=== PATIENT | female | born 1965 | race Caucasian/White ===

== ENCOUNTER 2017-10-17 15:29 | Outpatient (CLI) | payer MEDICARE ==
--- NOTE | 2017-10-17 19:21 | ULT ---
PELVIC ULTRASOUND: 10/17/17 Transabdominal and endovaginal ultrasound of pelvis performed. HISTORY: Right ovarian cyst identified at outside institution. FINDINGS: The patient is post hysterectomy. Both ovaries are identified. The left ovary appears unremarkable. C olor doppler and spectral analysis demonstrates blood flow to the left ovary. In the right adnexa, there are two adjacent cysts. The largest measures up to 3.5 cm and a smaller cy st is seen measuring 1.5 cm. Right ovary is identified and color doppler with spectral analysis does show flow to the right ovary. IMPRESSION: There are two right ovarian cysts, the largest measuring up to 3.5 cm. POS: [facility]
== END 2017-10-17 15:30 | disposition home or self-care (01) ==
LOC: ULT 15:29
PROVIDERS: ATTEND Family Medicine
DX: N83.201 Unspecified ovarian cyst, right side (principal)
CPT/HCPCS: 76856; 82378; 86304

== ENCOUNTER 2018-10-03 10:18 | Outpatient (CLI) | payer MEDICARE ==
--- NOTE | 2018-10-03 13:52 | MRI ---
MRI RIGHT SHOULDER WITHOUT CONTRAST: HISTORY: Internal derangement, M24.811. COMPARISON: None. FINDINGS: Biceps tendon: The extraarticular biceps tendon is normal. Mild intraarticular tendinosis. Labrum: There is a focal anterior labral tear at 3 o'clock. There is moderate degenerative signal w ithin the superior labrum, without a displaced tear appreciated, but with free edge fraying. Rotator cuff: There is a focal full-thickness leading edge tear of the anterior 6 mm supraspinatus t endon from the foot print, retracted 4 mm. Moderate tendinosis of the remainder of supraspinatus and infraspinatus tendons. Mild tendinosis, subscapularis. Bones: Advanced degenerative disease, acromioclavicular joint, with subcortical cysts and osteophyte formation. 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 There is also bursal surface fraying of the supraspinatus tendon. Small subacromial/subdeltoid bursal effusion. Muscle bulk is normal. IMPRESSION: 1. Type III acromion, narrowing the subacromial space, causing bursal surface fraying of the suprasp inatus tendon. 2. A focal leading edge 6 mm edge full-thickness tear of the anterior fibers of the supraspinatus te ndon. 3. Focal chondrolabral tear of the anterior labrum at 3 o'clock, along with free edge fraying of the superior labrum. POS: [facility]
== END 2018-10-03 10:19 | disposition home or self-care (01) ==
LOC: BICMRI 10:18
PROVIDERS: ATTEND Family Medicine
DX: M24.811 Other specific joint derangements of right shoulder, not elsewhere classified (principal); S31.41XD Laceration without foreign body of vagina and vulva, subsequent encounter

== ENCOUNTER 2018-11-08 15:26 | Outpatient (CLI) | payer MEDICARE ==
--- NOTE | 2018-11-08 16:12 | RAD ---
CERVICAL SPINE FIVE VIEWS: Date: 11-08-18 History: Neck pain. FINDINGS: Cervical vertebral body height and alignment appears within normal limits. There is no anterolisthesis or retrolisthesis noted within the cervical spine. No prevertebral soft t issue swelling. Open mouth odontoid view and Fuchs view demonstrate a normal appearing C1-2 articulation and dens res pectively. IMPRESSION: No acute findings. POS: [facility]
== END 2018-11-08 15:27 | disposition home or self-care (01) ==
LOC: BICRAD 15:26
PROVIDERS: ATTEND Family Medicine
DX: M54.2 Cervicalgia (principal)
CPT/HCPCS: 72040

== ENCOUNTER 2020-04-28 12:23 | Outpatient (CLI) | payer MEDICARE ==
--- NOTE | 2020-04-28 14:33 | RAD ---
FOUR VIEWS OF THE LEFT ELBOW: COMPARISON: None. HISTORY: Elbow pain for a month. FINDINGS: Four views of the left elbow show no evidence of acute fracture or dislocation. No elbow effusion is seen. No degenerative changes are present. IMPRESSION: Unremarkable exam. POS: [facility]
== END 2020-04-28 12:24 | disposition home or self-care (01) ==
LOC: BICRAD 12:23
PROVIDERS: ATTEND Family Medicine
DX: M25.522 Pain in left elbow (principal)

== ENCOUNTER 2020-06-08 08:43 | Outpatient (CLI) | payer MEDICARE ==
--- NOTE | 2020-06-08 09:11 | BD ---
EXAM: Bone densitometry using DEXA HISTORY: 55 yo female. Screening for postmenopausal osteoporosis FINDINGS: L1--bone mineral density 0.942 g/sq cm; T score -0.4 ; Z score 0.6 L2--bone mineral density 1.010 g/sq cm; T score -0.2 ; Z score 1.0 L3--bone mineral density 1.018 g/sq cm; T score -0.6 ; Z score 0.6 L4--bone mineral density 0.991 g/sq cm; T score -0.6 ; Z score 0.6 Total L1-L4--bone mineral density 0.991 g/sq cm; T score -0.5 ; Z score 0.6 Left femoral neck--bone mineral density0.804; T score -0.4 ; Z score 0.7 Total proximal left femur--bone mineral density 1.091; T score 1.2 ; Z score 2.0 IMPRESSION: Normal BMD
== END 2020-06-08 08:44 | disposition home or self-care (01) ==
LOC: BICMAMMO 08:43
PROVIDERS: ATTEND Family Medicine
DX: Z13.820 Encounter for screening for osteoporosis (principal); N95.1 Menopausal and female climacteric states
CPT/HCPCS: 77080

== ENCOUNTER 2022-05-12 15:02 | Emergency (ER) | payer OTHER, MEDICARE ==
[2022-05-12 15:24] LABS: #Eosinphils 0.2 thou/uL (0.0-0.7); #Lymphocytes 2.7 thou/uL (1.20-3.40); #Monocytes 0.5 thou/uL (0.11-0.59); #Neutrophils 5.4 thou/uL (1.40-6.50); %Basophils 0.2 % (0.0-1.0); %Eosinophils 2.4 % (0.0-10.0); %Lymphocytes 30.9 % (21.0-51.0); %Monocytes 5.3 % (0.0-10.0); %Neutrophils 61.2 % (42.0-75.0); Hemoglobin 11.9 g/dL (12.0-16.0); Mean Corpuscular HGB CONC 33.5 g/dL (32.0-36.0); Mean Corpuscular Hemoglobin 32.1 pg (27.0-31.0); Mean Corpuscular Volume 95.9 fL (78.0-98.0); Mean Platelet Volume 7.6 fL (7.4-10.4); Platelet Count 377 thou/uL (130-400); RBC Distribution Width 11.4 % (11.5-14.5); Red Blood Cell (RBC) Count 3.69 mill/uL (4.20-5.40); White Blood Cell (WBC) Count 8.8 thou/uL (4.8-10.8)
[2022-05-12 15:35] LABS: INR-International Normal Ratio 0.9; Prothrombin Time 11.9 sec (12.0-14.7)
[2022-05-12 15:44] LABS: ALT (SGPT) 15 U/L (8-55); AST (SGOT) 20 U/L (5-34); Albumin 4.2 g/dL (3.5-5.0); Alkaline Phosphatase 70 U/L (40-110); Anion Gap 15 mmol/L (10-20); BUN (Urea Nitrogen) 19 mg/dL (9.8-20.1); Bilirubin, Total Less than 0.2 mg/dL (0.2-1.2); Calc. Creatinine Clearance 0 mL/min (70-130); Calcium 9.6 mg/dL (7.8-10.44); Carbon Dioxide 24 mmol/L (22-29); Chloride 106 mmol/L (98-107); Globulin 2.9 g/dL (2.4-3.5); Glucose 96 mg/dL (70-105); Potassium 4.4 mmol/L (3.5-5.1); Protein, Total 7.1 g/dL (6.0-8.3); Sodium 141 mmol/L (136-145)
== END 2022-05-12 16:40 | disposition home or self-care (01) ==
LOC: ERS 15:02
DX: S29.012A Strain of muscle and tendon of back wall of thorax, initial encounter (principal); N83.201 Unspecified ovarian cyst, right side; R20.2 Paresthesia of skin; V43.52XA Car driver injured in collision with other type car in traffic accident, initial encounter
CPT/HCPCS: 70450; 71045; 71260; 72125; 74177; 80053; 83605; 85025; 85610; 85730; 86850; 86900; 86901; 93005; G0390

== ENCOUNTER 2022-05-13 12:24 | Emergency (ER) | payer OTHER, MEDICARE ==
[2022-05-13] MEDS ORDERED: Ondansetron ODT 4 MG TAB ONE (14:01)
== END 2022-05-13 17:08 | disposition home or self-care (01) ==
LOC: ERS 12:24
DX: S06.0X0A Concussion without loss of consciousness, initial encounter (principal); S43.401A Unspecified sprain of right shoulder joint, initial encounter; E03.9 Hypothyroidism, unspecified; Z79.899 Other long term (current) drug therapy; V89.2XXA Person injured in unspecified motor-vehicle accident, traffic, initial encounter
CPT/HCPCS: 70450; 72125; Q0162

== ENCOUNTER 2023-02-03 12:53 | Outpatient (CLI) | payer MEDICARE | END 2023-02-03 12:54 | disposition home or self-care (01) | LOC: RAD 12:53 | PROVIDERS: ATTEND Internal Medicine Rheumatology | DX: M46.1 Sacroiliitis, not elsewhere classified (principal); M95.8 Other specified acquired deformities of musculoskeletal system; M53.3 Sacrococcygeal disorders, not elsewhere classified; M25.811 Other specified joint disorders, right shoulder | CPT/HCPCS: 72202 ==

== ENCOUNTER 2023-03-20 10:32 | Outpatient (CLI) | payer MEDICARE, OTHER | END 2023-03-20 10:33 | disposition home or self-care (01) | LOC: DTY/OP 10:32 | PROVIDERS: ATTEND Family Medicine | DX: E16.2 Hypoglycemia, unspecified (principal); Z98.84 Bariatric surgery status | CPT/HCPCS: 97802 ==

== ENCOUNTER 2023-06-02 10:02 | Outpatient (CLI) | payer MEDICARE | END 2023-06-02 10:03 | disposition home or self-care (01) | LOC: BICCT 10:02 | PROVIDERS: ATTEND Family Medicine | DX: R10.9 Unspecified abdominal pain (principal); R91.1 Solitary pulmonary nodule; Z90.49 Acquired absence of other specified parts of digestive tract; Z98.890 Other specified postprocedural states | CPT/HCPCS: 74150; 74160 ==

== ENCOUNTER 2024-05-09 08:39 | Outpatient (CLI) | payer MEDICARE | END 2024-05-09 08:40 | disposition home or self-care (01) | LOC: BICMAMMO 08:39 | PROVIDERS: ATTEND Family Medicine | DX: Z12.31 Encounter for screening mammogram for malignant neoplasm of breast (principal); Z13.820 Encounter for screening for osteoporosis; Z78.0 Asymptomatic menopausal state; N64.89 Other specified disorders of breast; M85.88 Other specified disorders of bone density and structure, other site | CPT/HCPCS: 77063; 77067; 77080 ==

== ENCOUNTER 2024-05-13 14:51 | Outpatient (CLI) | payer MEDICARE | END 2024-05-13 14:52 | disposition home or self-care (01) | LOC: BICMAMMO 14:51 | PROVIDERS: ATTEND Family Medicine | DX: N64.89 Other specified disorders of breast (principal) | CPT/HCPCS: 76642; 77065; G0279 ==

== ENCOUNTER 2024-06-13 14:07 | Outpatient (CLI) | payer MEDICARE | END 2024-06-13 14:08 | disposition home or self-care (01) | LOC: BICRAD 14:07 | PROVIDERS: ATTEND Internal Medicine Rheumatology | DX: M25.561 Pain in right knee (principal); M17.11 Unilateral primary osteoarthritis, right knee ==

== ENCOUNTER 2024-11-25 14:11 | Outpatient (CLI) | payer MEDICARE | END 2024-11-25 14:12 | disposition home or self-care (01) | LOC: BICMRI 14:11 | PROVIDERS: ATTEND Family Medicine | DX: M24.812 Other specific joint derangements of left shoulder, not elsewhere classified (principal); M19.012 Primary osteoarthritis, left shoulder ==

== ENCOUNTER 2024-11-28 13:14 | Outpatient (CLI) | payer MEDICARE | END 2024-11-28 13:15 | disposition home or self-care (01) | LOC: BICMAMMO 13:14 | PROVIDERS: ATTEND Family Medicine | DX: N63.20 Unspecified lump in the left breast, unspecified quadrant (principal); N64.89 Other specified disorders of breast | CPT/HCPCS: 77065; G0279 ==